=== PATIENT | female | born 1990 | race Caucasian/White ===

== ENCOUNTER 2018-09-13 08:21 | Emergency (ER) | payer MEDICAID ==
[~2018-09-13] VITALS: Ht 172.7 cm; Wt 68.0 kg
[2018-09-13] MEDS ORDERED: ONDANSETRON HCL 4 MG/2 ML VIAL IV ONE (09:00)
[2018-09-13] MEDS ORDERED: SODIUM CHLORIDE 0.9% 1,000 ML IV ONE ×2 (09:00)
[2018-09-13] MEDS ORDERED: MORPHINE SULFATE 4 MG/ML SYR/VIAL IV ONE (09:00)
[2018-09-13] MEDS ORDERED: ONDANSETRON HCL 4 MG/2 ML VIAL ONE (09:04)
[2018-09-13] MEDS ORDERED: MORPHINE SULFATE 4 MG/ML SYR/VIAL ONE (09:04)
[2018-09-13 09:06] LABS: Urine Bacteria NONE SEEN /hpf (None Seen); Urine Blood Negative /uL (Negative); Urine Specific Gravity 1.013 (1.001-1.035); Urine WBC 1 /hpf (0 - 5)
[2018-09-13 09:26] LABS: Basophils # (auto) 0 uL; Basophils % (auto) 0.4 % (0.0-2.0); Eosinophils # (auto) 0 uL; Eosinophils % (auto) 0.4 % (0.0-7.0); Hematocrit 44.8 % (36.0-46.0); Hemoglobin 14.9 g/dL (12.2-16.2); Lymphocytes # (auto) 1.3 uL; Lymphocytes % (auto) 19.8 % (10.0-50.0); Mean Corpuscular Hemoglobin 31.3 pg (28.0-32.0); Mean Corpuscular Hgb Conc. 33.3 g/dL (32.0-36.0); Mean Corpuscular Volume 93.9 fL (80.0-100.0); Monocytes # (auto) 0.4 uL; Monocytes % (auto) 5.6 % (0.0-12.0); Neutrophils # (auto) 4.9 uL; Neutrophils % (auto) 73.8 % (37.0-80.0); Nucleated Red Blood Cells % 0.1 %; Platelet Count (auto) 165 10^3/uL (140-450); Red Blood Cells 4.77 10^6/uL (4.0-5.20); Red Cell Distribution Width 13.5 % (11.8-14.3); White Blood Cell 6.7 10^3/uL (4.4-10.8)
[2018-09-13 09:38] LABS: INR 0.96 (0.9-1.15); Partial Thromboplastin Time 23.6 sec (23.78-33.04); Prothrombin Time 10.3 sec (9.27-12.13)
[2018-09-13 09:43] LABS: Albumin 4.5 g/dL (3.4-5.0); BUN/Creatinine Ratio 18.5; Calcium 9.2 mg/dL (8.5-10.1); Potassium 4.5 mmol/L (3.5-5.1)
[2018-09-13 09:46] LABS: Bilirubin, Total 0.3 mg/dL (0.2-1.0); Total Protein 7.5 g/dL (6.4-8.2)
[2018-09-13 10:26] LABS: Amylase 124 U/L (25-115); Lipase 285 U/L (73-393)
[2018-09-13 11:48] VITALS: BP 127/80
== END 2018-09-13 12:13 | disposition home or self-care (01) ==
LOC: ER 08:21
DX: R10.30 Lower abdominal pain, unspecified (principal); R11.2 Nausea with vomiting, unspecified; R19.7 Diarrhea, unspecified; R07.9 Chest pain, unspecified; Z90.49 Acquired absence of other specified parts of digestive tract; Z90.710 Acquired absence of both cervix and uterus
CPT/HCPCS: 36415; 71045; 74176; 80053; 81001; 82150; 83690; 85025; 85610; 85730; 96361; 96374; 96375; 99284; J2270; J2405; J7030

== ENCOUNTER 2018-09-13 23:42 | Emergency (ER) | payer MEDICAID ==
[~2018-09-13] VITALS: Ht 172.7 cm; Wt 68.0 kg
[2018-09-14] MEDS ORDERED: LORazepam 2MG/ML-1ML VIAL IV ONE (00:15)
[2018-09-14 00:40] LABS: Basophils # (auto) 0.2 uL; Basophils % (auto) 2.8 % (0.0-2.0); Eosinophils # (auto) 0 uL; Eosinophils % (auto) 0.2 % (0.0-7.0); Hematocrit 45.1 % (36.0-46.0); Hemoglobin 15.4 g/dL (12.2-16.2); Lymphocytes # (auto) 1.2 uL; Lymphocytes % (auto) 15.5 % (10.0-50.0); Mean Corpuscular Hemoglobin 31.4 pg (28.0-32.0); Mean Corpuscular Hgb Conc. 34.1 g/dL (32.0-36.0); Mean Corpuscular Volume 91.9 fL (80.0-100.0); Monocytes # (auto) 0.3 uL; Monocytes % (auto) 4.2 % (0.0-12.0); Neutrophils # (auto) 5.7 uL; Neutrophils % (auto) 77.3 % (37.0-80.0); Nucleated Red Blood Cells % 0.1 %; Platelet Count (auto) 206 10^3/uL (140-450); Red Blood Cells 4.91 10^6/uL (4.0-5.20); Red Cell Distribution Width 13.5 % (11.8-14.3); White Blood Cell 7.4 10^3/uL (4.4-10.8)
[2018-09-14 00:59] LABS: Albumin 5.1 g/dL (3.4-5.0); Calcium 9.8 mg/dL (8.5-10.1); Potassium 3.5 mmol/L (3.5-5.1)
[2018-09-14 01:01] LABS: Bilirubin, Total 0.5 mg/dL (0.2-1.0)
[2018-09-14 01:09] LABS: Salicylate < 1.7 mg/dL (2.8-20.0)
[2018-09-14 01:20] LABS: Acetaminophen < 2.0 ug/mL (10-30)
[2018-09-14] MEDS ORDERED: NALBUPHINE HCL 10 MG/1ml INJECTION IV ONE (02:30)
[2018-09-14] MEDS ORDERED: ONDANSETRON HCL 4 MG/2 ML VIAL IV ONE (02:30)
[2018-09-14] MEDS ORDERED: SODIUM CHLORIDE 0.9% 1,000 ML IV ONE (02:30)
[2018-09-14 02:37] VITALS: BP 112/59
[2018-09-14 02:56] LABS: Alcohol, Urine < 3.0 mg/dL (0-5); Amphetamine Screen, Urine NEGATIVE (NEGATIVE); Barbiturate Scree,Urine NEGATIVE (NEGATIVE); Benzodiazephine Screen, Urine NEGATIVE (NEGATIVE); Cannabinoid Screen, Urine POSITIVE (NEGATIVE); Cocaine Screen, Urine NEGATIVE (NEGATIVE); Opiate Scree,Urine NEGATIVE (NEGATIVE); Phencyclidine Screen, Urine NEGATIVE (NEGATIVE)
[2018-09-14 03:14] LABS: Urine Bacteria NONE SEEN /hpf (None Seen); Urine Blood Negative /uL (Negative); Urine Specific Gravity 1.007 (1.001-1.035); Urine WBC <1 /hpf (0 - 5)
== END 2018-09-14 05:05 | disposition home or self-care (01) ==
LOC: ER 23:48
DX: F45.8 Other somatoform disorders (principal); F41.9 Anxiety disorder, unspecified; F12.10 Cannabis abuse, uncomplicated; Z87.11 Personal history of peptic ulcer disease; Z90.710 Acquired absence of both cervix and uterus
CPT/HCPCS: 36415; 36600; 80053; 80307; 80329; 81001; 82805; 85025; 85652; 86141; 96374; 96375; 99283; J2060; J2300; J2405; J7030

== ENCOUNTER 2018-12-10 09:22 | Emergency (ER) | payer MEDICAID ==
[~2018-12-10] VITALS: Ht 165.1 cm; Wt 49.9 kg
[2018-12-10 10:06] LABS: Basophils # (auto) 0 uL; Basophils % (auto) 0.5 % (0.0-2.0); Eosinophils # (auto) 0 uL; Eosinophils % (auto) 0.1 % (0.0-7.0); Hematocrit 43.5 % (36.0-46.0); Hemoglobin 14.7 g/dL (12.2-16.2); Lymphocytes # (auto) 0.8 uL; Lymphocytes % (auto) 13.8 % (10.0-50.0); Mean Corpuscular Hemoglobin 31.8 pg (28.0-32.0); Mean Corpuscular Hgb Conc. 33.8 g/dL (32.0-36.0); Mean Corpuscular Volume 94.1 fL (80.0-100.0); Monocytes # (auto) 0.3 uL; Monocytes % (auto) 4.7 % (0.0-12.0); Neutrophils # (auto) 4.8 uL; Neutrophils % (auto) 80.9 % (37.0-80.0); Platelet Count (auto) 168 10^3/uL (140-450); Red Blood Cells 4.63 10^6/uL (4.0-5.20); Red Cell Distribution Width 13.8 % (11.8-14.3); White Blood Cell 5.9 10^3/uL (4.4-10.8)
[2018-12-10] MEDS ORDERED: diphenhdrAMINE HCL 50 MG/1 ML VL IV ONE (10:15)
[2018-12-10] MEDS ORDERED: LORazepam 2MG/ML-1ML VIAL IV ONE (10:15)
[2018-12-10 10:26] LABS: Calcium 10.1 mg/dL (8.5-10.1); Magnesium 2.7 mg/dL (1.6-2.6); Potassium 3.3 mmol/L (3.5-5.1)
[2018-12-10 10:33] LABS: BUN/Creatinine Ratio 13.2
[2018-12-10] MEDS ORDERED: SODIUM CHLORIDE 0.9% 1,000 ML IV ONE (10:34)
[2018-12-10 11:25] LABS: Urine Amorphous Crystal MOD /hpf (None Seen); Urine Bacteria NONE SEEN /hpf (None Seen); Urine Blood Negative /uL (Negative); Urine Specific Gravity 1.013 (1.001-1.035); Urine WBC 3 /hpf (0 - 5)
[2018-12-10 12:35] VITALS: BP 109/73
== END 2018-12-10 15:20 | disposition home or self-care (01) ==
LOC: EDBD 09:22 → ER 09:23
DX: K52.9 Noninfective gastroenteritis and colitis, unspecified (principal); F41.9 Anxiety disorder, unspecified; F12.10 Cannabis abuse, uncomplicated; Z90.710 Acquired absence of both cervix and uterus; Z90.89 Acquired absence of other organs
CPT/HCPCS: 36415; 74176; 80053; 81001; 83735; 85025; 94761; 96361; 96374; 96375; 99284; J1200; J2060; J7030

== ENCOUNTER 2019-03-20 13:33 | Inpatient (IN) | payer MEDICAID ==
[~2019-03-20] VITALS: Ht 172.7 cm; Wt 62.8 kg
[2019-03-20] MEDS ORDERED: SODIUM CHLORIDE 0.9% 1,000 ML IV ONE (15:00)
[2019-03-20] MEDS ORDERED: LORazepam 2MG/ML-1ML VIAL IV ONE ×2 (15:00→18:15)
[2019-03-20 17:45] LABS: Basophils # (auto) 0 uL; Basophils % (auto) 0.5 % (0.0-2.0); Eosinophils # (auto) 0 uL; Eosinophils % (auto) 0.1 % (0.0-7.0); Hemoglobin 14.8 g/dL (12.2-16.2); Lymphocytes # (auto) 1.1 uL; Lymphocytes % (auto) 16.8 % (10.0-50.0); Mean Corpuscular Hemoglobin 32.2 pg (28.0-32.0); Mean Corpuscular Hgb Conc. 34.3 g/dL (32.0-36.0); Monocytes # (auto) 0.3 uL; Monocytes % (auto) 4.7 % (0.0-12.0); Neutrophils # (auto) 5.1 uL; Neutrophils % (auto) 77.9 % (37.0-80.0); Platelet Count (auto) 202 10^3/uL (140-450); Red Blood Cells 4.58 10^6/uL (4.0-5.20); Red Cell Distribution Width 13.5 % (11.8-14.3); White Blood Cell 6.6 10^3/uL (4.4-10.8)
[2019-03-20 17:57] LABS: Albumin 4.8 g/dL (3.4-5.0); BUN/Creatinine Ratio 16.2; Calcium 9.4 mg/dL (8.5-10.1); Potassium 3.1 mmol/L (3.5-5.1)
[2019-03-20 17:59] LABS: Bilirubin, Total 0.8 mg/dL (0.2-1.0); Total Protein 8.1 g/dL (6.4-8.2)
[2019-03-20] MEDS ORDERED: LORazepam 2MG/ML-1ML VIAL ONE (18:16)
[2019-03-20] MEDS ORDERED: POTASSIUM CHL 20 Meq TABLET PO ONE (19:30)
[2019-03-20] MEDS ORDERED: PROMETHAZINE HCL 25 MG/ML 1ML IV ONE (19:30)
[2019-03-20 20:51] LABS: Urine Bacteria FEW /hpf (None Seen); Urine Blood Negative /uL (Negative); Urine Mucus FEW (None Seen); Urine Specific Gravity 1.028 (1.001-1.035); Urine WBC 3 /hpf (0 - 5)
[2019-03-20 20:57] LABS: Amphetamine Screen, Urine NEGATIVE (NEGATIVE); Barbiturate Scree,Urine NEGATIVE (NEGATIVE); Benzodiazephine Screen, Urine NEGATIVE (NEGATIVE); Cannabinoid Screen, Urine POSITIVE (NEGATIVE); Cocaine Screen, Urine NEGATIVE (NEGATIVE); Opiate Scree,Urine NEGATIVE (NEGATIVE); Phencyclidine Screen, Urine NEGATIVE (NEGATIVE)
[2019-03-20] MEDS ORDERED: ONDANSETRON HCL 4 MG/2 ML VIAL IV PRN (22:45)
[2019-03-20] MEDS ORDERED: ACETAMINOPHEN 325 MG TAB PO PRN (22:45)
--- NOTE | 2019-03-20 23:15 | NUR ---
MS admit from ER KRISTA STERLING admitted to MS after SBAR received. Patient oriented to CANDACE NICHOLSON, primary RN, unit, room, bed, and unit policies regarding patient care and visiting hours. Patient weighed by bedscale and encouraged to call if they need something. All questions and concerns addressed, patient verbalized understanding.
[2019-03-20 23:33] VITALS: BP 102/56
[2019-03-21 05:26] VITALS: BP 97/66
[2019-03-21 05:45] LABS: BUN/Creatinine Ratio 26.3; Calcium 8.6 mg/dL (8.5-10.1); Potassium 4.3 mmol/L (3.5-5.1)
--- NOTE | 2019-03-21 06:35 | NUR ---
PATIENT RESTING IN BED COMFORTABLY, SO S/S OF PAIN OR DISTRESS. EVEN AND UNLABORED RESPIRATIONS NOTED. CALL LIGHT WITHIN REACH. SIDE RAILS UP X2. SEIZURE PRECAUTIONS IN PLACE.
--- NOTE | 2019-03-21 08:00 | NUR ---
Patient in bed awake, oriented x4, no acute distress noted. Patient denies she wants to hurt herself. Patient verbalized "I just need help."
[2019-03-21 09:00] VITALS: BP 130/59
--- NOTE | 2019-03-21 09:30 | NUR ---
Tele psych consult placed via [employer].
--- NOTE | 2019-03-21 09:35 | NUR ---
Kyra from Tele Psych Consult called. Tele psych monitor already set up in the patient's room.
--- NOTE | 2019-03-21 10:25 | NUR ---
Psychiatrist called that she could not access the patient's medical record, she will call IT.
--- NOTE | 2019-03-21 10:45 | NUR ---
Kyra from Tele Psych Consult that the psychiatrist could not access patient's medical records, they need copy of H&P, ER Physician's notes, and order for the Psychiatric Consult to be sent via ; Contact# [phone] (1). Charge Nurse Caitlyn made aware.
--- NOTE | 2019-03-21 10:57 | NUR ---
Copy of H&P, ER Physician's notes, order for Psych Consult sent via Fax.
[2019-03-21] MEDS: FAMOTIDINE 20 MG TAB PO SCH ×2 (11:17→21:51)
[2019-03-21] MEDS: SERTRALINE HCL 50 MG TAB PO SCH (11:17)
--- NOTE | 2019-03-21 11:35 | NUR ---
Paged the Engineering to fix the call light. No light on when the red button is pressed to call the Nurse.
--- NOTE | 2019-03-21 12:17 | NUR ---
Called [facility] (P# [phone]). Spoke with Lynette. Lynette said they received the copy of H&P, ER Physician's Notes and order for psych Consult via Fax, she will follow up with the psychiatrist. Tele psych monitor at bedside.
[2019-03-21 13:00] VITALS: BP 130/70
--- NOTE | 2019-03-21 13:06 | NUR ---
Dr. Almazan (P# [phone]) called back. said she did the Tele Psych Consult with the patient, she will send her recommendation via Fax, she asked if she can talk to the attending physician. Dr. Marroquin made aware. Dr. Marroquin said he has yet to see the patient, if he can call back the psychiatrist. Dr. Almazan made aware.
--- NOTE | 2019-03-21 16:09 | NUR ---
Called [facility] (P# [phone]). Spoke with Tommie that the Tele Psych Consult report/recommendation from Dr. Almazan is not received yet. Tommie to resend the report to . Waiting for the copy of recommendation via Fax.
--- NOTE | 2019-03-21 16:15 | NUR ---
Tele Psych report/recommendation received via Fax. Report placed in the patient's chart.
--- NOTE | 2019-03-21 16:17 | NUR ---
Informed Dr. Marroquin of the Tele Psych Consult report/recommendation.
[2019-03-21 17:00] VITALS: BP 144/79
--- NOTE | 2019-03-21 19:20 | NUR ---
Opening Shift Note Resumed care of patient post report from Nathalie RN. Patient awake and alert, resting in bed comfortably. No S/S of distress/SOB or pain. Patient verbalizes feeling mild anxiety at the moment due to "no knowing what the plan is if I get another seizure." Instructed on POC and to call for assist PRN, patient verbalizes understanding. Will continue to monitor for changes Q1hr and PRN. Patients and children at bed side. .
--- NOTE | 2019-03-21 20:32 | NUR ---
DR GUY AT BED SIDE
--- NOTE | 2019-03-21 20:55 | NUR ---
DR GUY DISCUSSED POC WITH PATIENT AND FAMILY, ALL QUESTIONS ANSWERED AT THIS TIME.
[2019-03-21] MEDS: TEMAZEPAM 15 MG CAP PO PRN (21:51)
[2019-03-21 22:00] VITALS: BP 127/76
--- NOTE | 2019-03-22 02:00 | NUR ---
PATIENT RESTING IN BED COMFORTABLY. NO S/S OF PAIN OR DISTRESS. CALL LIGHT WITHIN REACH.
--- NOTE | 2019-03-22 03:56 | NUR ---
PATIENT CRYING DURING VITAL CHECKS. PATIENT AWAKEN FROM SLEEP TO DO VITAL CHECKS, PER HEALTH CARE ATTORNEY PATIENT BEGUN CRYING STATING "I WOKE UP SCARED, I FEEL MY ANXIETY" PATIENT ASSESSED. PATIENT CONTINUES TO CRY, SAYING "IM SORRY, I HATE FEELING LIKE THIS" PATIENT COMFORTED AND RELAXATION TECHNIQUES ENCOURAGED. PATIENT VERBALIZES NO RELIEF FROM ANXIETY. WILL MEDICATE PER ORDER.
--- NOTE | 2019-03-22 04:01 | NUR ---
XANAX 0.25MG ADMINISTERED PER ORDER. WILL MONITOR CLOSELY AND REASSESS ANXIETY.
[2019-03-22] MEDS: ALPRAZolam 0.25 MG TAB PO PRN (04:09)
[2019-03-22 05:01] VITALS: BP 117/72
--- NOTE | 2019-03-22 08:15 | NUR ---
Patient sitting on the chair, resting her head on the side of the bed, crying, stated it's "very hot." Informed the patient I will get ice bag for her.
--- NOTE | 2019-03-22 08:20 | NUR ---
Patient found on the floor, with pillow under the head, eyes open, staring at the ceiling, verbalized "I'm sorry." BP = 132/95, Pulse rate = 95, RR = 19, O2 Sat = 99% on room air.
--- NOTE | 2019-03-22 08:30 | NUR ---
Assisted the patient back to bed.
[2019-03-22] MEDS: LORazepam 2MG/ML-1ML VIAL IV PRN ×3 (08:31→18:42)
--- NOTE | 2019-03-22 08:31 | NUR ---
BP = 151/74, Pulse = 101, RR = 18, O2 Sat = 100% on room air.
--- NOTE | 2019-03-22 08:31 | NUR ---
Ativan Inj given for seizures as ordered.
[2019-03-22 09:00] VITALS: BP 137/60
--- NOTE | 2019-03-22 10:18 | NUR ---
BP = 119/83, Heart rate = 109, RR = 18, O2 Sat = 99% on Room air.
--- NOTE | 2019-03-22 10:18 | NUR ---
Ativan Inj 1 mg given for seizures.
--- NOTE | 2019-03-22 10:19 | NUR ---
Dr. Marroquin at bedside.
--- NOTE | 2019-03-22 10:50 | NUR ---
Called Charge Nurse that patient needs a sitter.
--- NOTE | 2019-03-22 11:00 | NUR ---
Patient asleep at this time. Grandfather Bernardo ([phone]) at bedside.
--- NOTE | 2019-03-22 11:46 | NUR ---
Patient is awake, depressed. Asked the patient if she's ready to take her Famotidine and Zoloft pills as ordered. Patient said okay.
[2019-03-22] MEDS: FAMOTIDINE 20 MG TAB PO SCH ×2 (11:47→21:31)
[2019-03-22] MEDS: SERTRALINE HCL 50 MG TAB PO SCH (11:47)
--- NOTE | 2019-03-22 12:15 | NUR ---
Lizzeth/INOCENTE Julien at bedside. Patient's grand father at bedside.
[2019-03-22 13:00] VITALS: BP 100/61
--- NOTE | 2019-03-22 13:38 | NUR ---
Dr. Sigala came over for follow up Neurology Consult. supervisor sound technician at bedside. Patient's mother Amy insisted that patient needs IV fluids. Dr. Sigala explained that patient needs to be encouraged to drink fluids and eat, ordered BMP. Patient on Regular Diet. MD speaking with patient's mother Amy and grandfather Amy.
[2019-03-22 15:13] LABS: Anion Gap 7 (5-15); BUN/Creatinine Ratio 17.6; Blood Urea Nitrogen 15 mg/dL (7-18); Calcium 9.3 mg/dL (8.5-10.1); Carbon Dioxide 23 mmol/L (21-32); Chloride 108 mmol/L (98-107); GFR African American 101 mL/min; GFR Non-African American 83 mL/min; Glucose 87 mg/dL (74-106); Potassium 3.8 mmol/L (3.5-5.1); Sodium 138 mmol/L (136-145)
--- NOTE | 2019-03-22 17:30 | NUR ---
Patient transferred via bed from Room 274A to Room 285A. Sitter at bedside.
--- NOTE | 2019-03-22 18:10 | NUR ---
Patient is talking, oriented x4, no acute distress noted. Family at bedside. Family member said patient's both hands and feet are always cold even at home.
--- NOTE | 2019-03-22 18:40 | NUR ---
Patient's Heart Rate on Telemtry went up to 150's to 160s. Patient having seizures. at bedside. Sitter at bedside.
--- NOTE | 2019-03-22 18:42 | NUR ---
Ativan Inj 1mg given for seizures as ordered. Heart rate = 131 went down to 120 to 115 bpm.
--- NOTE | 2019-03-22 19:50 | NUR ---
OPENING SHIFT NOTE: PATIENT IS RESTING IN BED. FRIEND IS BEDSIDE. SHE CURRENTLY HAS NO COMPLAINTS OF DISTRESS OR PAIN. RIGHT HAND IV WAS REPORTED PAINFUL AND WOULD NOT FLUSH SO THE SITE WAS DISCONTINUED. I UPDATED HER ON HER PLAN OF CARE AND SHE IS IN COMPLIANCE WITH IT. SITTER IS BEDSIDE. BED IS LOCKED IN LOWEST POSITION WITH SIDE RAILS UP X2. CALL LIGHT IS WITHIN REACH. WILL CONTINUE MONITOR.
--- NOTE | 2019-03-22 19:55 | NUR ---
PATIENT MOTHER CALLED FOR UPDATE REGARDING PATIENT CONDITION.
[2019-03-22] MEDS: TEMAZEPAM 15 MG CAP PO PRN (21:31)
[2019-03-22 21:36] VITALS: BP 124/67
[2019-03-23] MEDS: ALPRAZolam 0.25 MG TAB PO PRN (03:45)
[2019-03-23 05:41] VITALS: BP 105/74
--- NOTE | 2019-03-23 08:00 | NUR ---
Opening Shift Note Assumed care of patient, asleep but easily aroused. No S/S of distress/SOB or pain. Instructed on POC and to call for assist PRN, will continue to monitor for changes Q1hr and PRN. Sitter at bedside. Bed locked in lowest position and side rails padded for safety.
[2019-03-23 08:26] VITALS: BP 119/64
[2019-03-23] MEDS: LORazepam 2MG/ML-1ML VIAL IV PRN ×4 (09:41→21:59)
[2019-03-23] MEDS: FAMOTIDINE 20 MG TAB PO SCH (10:13)
[2019-03-23] MEDS: SERTRALINE HCL 50 MG TAB PO SCH (10:14)
--- NOTE | 2019-03-23 10:50 | NUR ---
Seizure activity Received call from dany at 10:37 stating that patient is having a seizure. V/S T. 98.6, P. 78, R. 22, B/P. 112/85, O2. 99% Ativan 1mg IV administered as ordered. Maineter stated that patient was unresponsive and shaking uncontrollably. Patient is now alert and oriented. Will continue to monitor patient.
--- NOTE | 2019-03-23 11:20 | NUR ---
Hospitalist Alexis Marroquin at bedside.
--- NOTE | 2019-03-23 11:31 | NUR ---
o/c note: Lopez Lerma called and stated pt needs to transfer to [facility]. He stated he talked to Bibi yesterday about transfer., no f/u with me. I am having primary Rn fax transfer packet to [facility] at fax # [phone]
[2019-03-23 13:00] VITALS: BP 103/84
--- NOTE | 2019-03-23 15:10 | NUR ---
Transfer packet re:faxed to [facility]. [phone]
--- NOTE | 2019-03-23 15:35 | NUR ---
Call from [facility] Received call from [facility] regarding patient. They received fax and was checking to confirm who the hospitalist and neurologist is for the patient and to see if the patient is on any IV fluids or supplemental oxygen.
--- NOTE | 2019-03-23 16:16 | NUR ---
Seizure Activity Received phone call from dany stating that patient is having seizure activity. Patient shaking uncontrollably and is unresponsive. Lasted for about 2 minutes. As per family member, the patient was sitting up conversing with them then she said everyone out and beckoned for persons to leave room. Her eyes then went into a fixed stare, she became unresponsive and started to shake. Family member noted that she was complaining of feeling very hot prior to this happening. Her hands were sweating and extremely cold to touch.
--- NOTE | 2019-03-23 16:56 | NUR ---
o/c note If pt gets transferred [facility] auth for [facility] is [id number]
[2019-03-23 17:00] VITALS: BP 120/73
--- NOTE | 2019-03-23 20:25 | NUR ---
ear mold laboratory technician called to inform that patient heart rate ashanti to 130. Went to check on patient and patient states that she had just come from the restroom ambulating. Patient heart rate currently between 75-80bpm.
--- NOTE | 2019-03-23 21:52 | NUR ---
Patient begin having a seizure. Observed and began protocol. Patient turned on right side with oxygen at 2lpm NC. 1st dose of 1 mg/0.5ml of Ativan then given at 215. Patient seizure subsided. Second seizure then began and 2nd dose of 1mg Ativan given at 215. Vitals elevated with BP 157/115, HR 181. Code assist called at 215. BS checked at 87. New orders obtained from harrison Martinist. BP reassessed at 98/71, HR 189. Keppra given 1000mg IV x1. All orders obtained and carried out.
[2019-03-23 22:00] VITALS: BP 123/66
[2019-03-23] MEDS ORDERED: LEVETIRACETAM 500 MG/5ML INJ IV ONE ×2 (22:08→22:24)
[2019-03-23] MEDS ORDERED: LEVETIRACETAM INJ 1,000 MG in D5W 5% 100 ML IV ONE (22:15)
[2019-03-24] MEDS: FAMOTIDINE 20 MG TAB PO SCH ×3 (00:02→21:51)
[2019-03-24 05:00] VITALS: BP 158/67
--- NOTE | 2019-03-24 08:00 | NUR ---
OPENING NOTE ASSUMED CARE OF PT. ALERT AND ORIENTED. NO S/S SOB/DISTRESS NOTED. SAFETY PRECAUTIONS IN PLACE. BED SET TO LOWEST POSITION/LOCKED, BEDSIDE RAILS UP X2, CALL LIGHT WARTHIN REACH. INSTRUCTED PATIENT TO CALL FOR ASSISTANCE. SITTER AT BEDSIDE. UPDATED ON POC. PT VERBALIZED UNDERSTANDING. WILL CONTINUE TO MONITOR Q1HR AND PRN.
--- NOTE | 2019-03-24 08:19 | NUR ---
o/c note will call [facility] at 100hrs since transfer center will be done with their bed report and transfer center will know what their bed situation is.
--- NOTE | 2019-03-24 08:20 | NUR ---
Seizure activity Received call from dany at 08:20 stating that patient is having a seizure. V/S P. 116, R. 18, B/P. 127/66, O2. 100% Ativan 1mg IV administered per MD ordered. Dany stated that patient was unresponsive and shaking uncontrollably. Patient is now alert and oriented. Will continue to monitor patient.
[2019-03-24] MEDS: LORazepam 2MG/ML-1ML VIAL IV PRN ×5 (08:26→21:10)
[2019-03-24 08:30] VITALS: BP 127/66
--- NOTE | 2019-03-24 09:00 | NUR ---
ENDORSED CARE TO RADHA BATES.
--- NOTE | 2019-03-24 09:30 | NUR ---
OPENING NOTE ASSUMED CARE OF PATIENT. ALERT AND ORIENTED. NO S/S SOB/DISTRESS NOTED. SAFETY PRECAUTIONS IN PLACE. BED SET TO LOWEST POSITION/LOCKED, BEDSIDE RAILS UP X2, CALL LIGHT WITHIN REACH. INSTRUCTED PATIENT TO CALL FOR ASSISTANCE. SITTER AT BEDSIDE. UPDATED ON POC. PT VERBALIZED UNDERSTANDING. WILL CONTINUE TO MONITOR Q1HR AND PRN.
--- NOTE | 2019-03-24 09:55 | NUR ---
PATIENT C/O CHEST PAIN EKG PERFORMED PER PROTOCOL, EKG READ BY DOCTOR PETERSON, EKG PLACED IN CHART. NO NEW ORDERS RECEIVED.
[2019-03-24] MEDS ORDERED: LEVETIRACETAM 500 MG TAB PO SCH (10:00)
--- NOTE | 2019-03-24 10:04 | NUR ---
o/c note: spoke to David at [facility] center and she stated they are going to have MD to MD with
[2019-03-24] MEDS: SERTRALINE HCL 50 MG TAB PO SCH ×2 (10:10→17:29)
[2019-03-24 12:10] VITALS: BP 131/74
--- NOTE | 2019-03-24 12:11 | NUR ---
1154 Patient had seizure activity movement was placed on side, Ativan given IVP at 1203, post V/S 131/74 118 HR 20 RR 100%O2 sat on 2LNC. Doctor Lopez paged at 1210 awaiting call back.
--- NOTE | 2019-03-24 12:22 | NUR ---
Nutrition Assessment Notes please see attached link for complete assessment Est. Needs BW (63 kg): [phone] kcal (25-30 kcal/kgBW), 63-75 gms pro (1.0-1.2gms/kgBW). Will continue to monitor pertinent labs and reassess nutrient need prn Addendum: 03/24/19 at [address] Amended: Links added.
--- NOTE | 2019-03-24 12:26 | NUR ---
DOCTOR BROOKS PAGED,AWAITING CALL BACK.
--- NOTE | 2019-03-24 12:54 | NUR ---
Paged Doctor Jovon, awaiting call back.
--- NOTE | 2019-03-24 13:03 | NUR ---
Spoke with Doctor Lopez MD aware of seizure activity, no new orders received.
--- NOTE | 2019-03-24 13:32 | NUR ---
Spoke with Jovon informed him of seizure activity, No new orders received will continue to monitor.
--- NOTE | 2019-03-24 15:02 | NUR ---
o/c note: Verified with his cell # of [phone] and then called [facility]. I spoke to Carey at [facility] transfer center and verified and DR. Marroquin's cell #. They have the correct numbers and they are waiting for their neurologist to get back to them
[2019-03-24 16:30] VITALS: BP 110/81
--- NOTE | 2019-03-24 18:05 | NUR ---
Seizure activity 1741 Patient had seizure activity movement, Seizure protocol started. Patient was placed on side with 2LNC. Doctor Lopez aware. 1755 Patient had seizure activity movement x2 Per CAN TECHNICIAN. Ativan given IVP (SEE EMAR), post V/S 131/74 118 HR 20 RR 100%O2 sat on 2LNC. Doctor Lopez aware. Now patient is awake and alert, will continue to monitor.
--- NOTE | 2019-03-24 19:15 | NUR ---
CARE ENDORSED TO NOC RN.
--- NOTE | 2019-03-24 21:08 | NUR ---
pt had seizure at this time lasting one minute, after pt finished having seizure she stated to me that she dont like me because i said that she is having pseudo seizures, and that she wants another nurse, i made this statement to two nurses because they were in a panic mode and to calm them down, charge nurse made aware of pts request
--- NOTE | 2019-03-24 21:15 | NUR ---
post seizure v/s 125/70, 97.5 ax, 78hr, 16, 100% on o2 2l,
--- NOTE | 2019-03-24 21:28 | NUR ---
pts mother called verbalized password all questions and concerns addressed, mother updated on plans to transfer [facility], mother upset as to why it is taking so long to transfer pt.
--- NOTE | 2019-03-24 21:39 | NUR ---
report given to gretta curran poc reviewed
--- NOTE | 2019-03-24 21:39 | NUR ---
Assumed care of patient: Assumed care of patient, awake and alert. No S/S of distress/SOB or pain. Instructed on POC and to call for assist PRN, will continue to monitor for changes Q1hr and PRN.
[2019-03-24] MEDS: ALPRAZolam 0.25 MG TAB PO PRN (21:52)
[2019-03-24 22:00] VITALS: BP 125/70
--- NOTE | 2019-03-24 22:30 | NUR ---
hospitalist notified of pts recent seizure activity, updated on pts poc
[2019-03-25 05:00] VITALS: BP 112/65
[2019-03-25] MEDS: LORazepam 2MG/ML-1ML VIAL IV PRN ×5 (07:06→17:19)
--- NOTE | 2019-03-25 07:06 | NUR ---
Patient had a seizure, seizure precautions implemented and PRN medications administered. Patient noted to response after seizure episode and able to communicate and make her needs known. RN to continue to assess and monitor patient.
--- NOTE | 2019-03-25 08:00 | NUR ---
Opening Shift Note Assumed care of patient, resting with her eyes closed at this time. retail shift supervisor nurse reported patient just had a seizure and was given PRN Ativan. No S/S of SOB or pain. Instructed on POC and to call for assist PRN, will continue to monitor patient frequently.
[2019-03-25] MEDS: ALPRAZolam 0.25 MG TAB PO PRN ×2 (09:23→22:01)
[2019-03-25] MEDS: SERTRALINE HCL 50 MG TAB PO SCH (09:23)
[2019-03-25] MEDS: FAMOTIDINE 20 MG TAB PO SCH ×2 (09:23→21:59)
[2019-03-25 09:47] VITALS: BP 106/58
--- NOTE | 2019-03-25 09:55 | NUR ---
Seizure Patient had a seizure. Sitter is recording how long seizures last. Patient was given PRN Ativan as ordered for seizure activity. She was also given Xanax this morning with her AM medications to help control her anxiety and possibly prevent or decrease seizure activity as patient has said her anxiety triggers her seizure activity. Vital signs: HR 120, Resp 36, BP 106/58.
--- NOTE | 2019-03-25 10:20 | NUR ---
Transfer: Spoke to Naun at [facility] transfer center. Informed him I have been trying to get pt there for the last 3 days and the same response from them that they are trying to get neurologist to call them back. Naun stated he would work on getting neuro md to talk with our md
--- NOTE | 2019-03-25 12:12 | NUR ---
Seizure Patient had another seizure. Family at bedside. Ativan given as ordered. Vital signs.
[2019-03-25 12:20] VITALS: BP 137/76
--- NOTE | 2019-03-25 12:56 | NUR ---
Transfer: Naun from [facility] called me and stated we have an accepting MD at [facility]. Accepting MD is . [facility] is not looking for bed. I will contact Dr. Sigala and let him know we have accepting at [facility] Addendum: 03/25/19 at 1259 by Desiree Greer RN CM correction: [facility] is looking for a bed
--- NOTE | 2019-03-25 13:58 | NUR ---
IV fluid? Not eating well. Patient is requesting IV fluids; patient's mother also called asking about IV nutrition as the patient is on a regular diet and is not eating well. was in room speaking with B bed when the patient made this request. This nurse informed the MD of the patient's request. No new orders at this time. MD has not seen the patient yet at this time.
[2019-03-25] MEDS ORDERED: SODIUM CHLORIDE 0.9% 250 ML IV ONE (14:15)
--- NOTE | 2019-03-25 14:15 | NUR ---
Transfer back agreement fax to [facility]
--- NOTE | 2019-03-25 15:19 | NUR ---
Transfer Auths per Theresa at [facility] auth for [facility] is [id number] and auth for [facility] is [id number]. [facility] called to both agencies
--- NOTE | 2019-03-25 15:20 | NUR ---
Seizure activity Lizzeth notified this nurse of a couple of seizures that happened today that did not last very long (3 seconds and 12 seconds). Patient currently sitting up in bed. Alert and oriented. Family at bedside. Notified family that they have an accepting doctor at [facility] but we are now waiting for a bed. Will notify patient and family when a bed becomes available.
[2019-03-25 16:45] VITALS: BP 114/67
--- NOTE | 2019-03-25 17:04 | NUR ---
Fluids/Family at bedside Spoke with Dr. Marroquin earlier regarding family/patient request for fluids through her IV since she is not eating and drinking well. MD ordered a bolus of 250 mL to be given over one hour. This was completed. Mother is at bedside and is upset that the patient has been here "so long" and that she is not getting fluids when she is not eating and drinking. It was explained that the patient received a bolus of 250 mL but they were not happy with this as the mother stated the patient is getting worse sitting here in this hospital. It was explained that a doctor has accepted her at [facility] but they are now waiting for a bed. Mother was very upset and stated we were going to let her lay here and . This nurse notified Dr. Marroquin and he gave orders for D5NS @ 75 mL/hour.
[2019-03-25] MEDS ORDERED: D5W/SOD CHLO 0.9% 1,000 ML IV SCH (17:15)
--- NOTE | 2019-03-25 18:16 | NUR ---
Seizure activity today The sitter notified this nurse of the seizure activity the patient had today. This nurse was not notified each time the patient had a seizure. At times her heart rate went up and that is how this nurse knew the patient was having a seizure. The patient sometimes gets hot prior to a seizure starting, sometimes her heart rate goes up in the 140-150's. After a seizure, the patient is tired and falls asleep. PRN Ativan given for seizure activity that this nurse was notified of. They are as follows: 0850 for 37 seconds 0910 for 45 seconds 0947 for 12 seconds 1203 for 3 seconds 1226 for 18 seconds 1428 for 15 seconds [address] Sigala came to see the patient this evening and answered the questions of the patient and family. He reassured the patient and informed the of the process of getting a bed at [facility]. The patient told Dr. Sigala that she was having chest pain. Dr. Sigala evaluated her and informed her that it was not heart related, but related to the muscle tension of the seizures.
--- NOTE | 2019-03-25 18:48 | NUR ---
Seizure - witnessed by Dr. Sigala Patient was reportedly having a seizure and Dr. Sigala was notified as he was on the floor at the time. He witnessed the seizure and examined the patient. He informed this nurse to hold the PRN Ativan at this time and said it was due to the fact that the patients eyes were looking around when he checked her and when he raised her arm, it did not drop down without resistance. patient's heart rate had gone up on the monitor, but when this nurse got to the room with the Ativan, the heart rate had decreased and patient was still and had eyes closed.
[2019-03-25 19:09] LABS: Anion Gap 9 (5-15); BUN/Creatinine Ratio 15.5; Blood Urea Nitrogen 16 mg/dL (7-18); Calcium 9.4 mg/dL (8.5-10.1); Carbon Dioxide 22 mmol/L (21-32); Chloride 109 mmol/L (98-107); GFR African American 81 mL/min; GFR Non-African American 67 mL/min; Glucose 72 mg/dL (74-106); Potassium 3.4 mmol/L (3.5-5.1); Sodium 140 mmol/L (136-145)
[2019-03-25] MEDS: TEMAZEPAM 15 MG CAP PO PRN (22:00)
--- NOTE | 2019-03-25 23:10 | NUR ---
Pt transferred to [facility] 2119- Received call from Mike at the [facility] transfer center to be notified of an open bed. Was told to call [phone] for report and to arrange for transport myself. 2211- Called [facility] to arrange transport. Given an ETA of one hour. 2219- Called and gave report to Duane at [facility]. 2308- Called the patients family and made them aware of the patient being transferred to [facility]. 2309- Pt picked up by [facility] and left the hospital via gurney. Pt had no S/S of distress and had no complaints at this time. Tele monitor returned to tele room and all wrist bands removed. All belongings given to transport team.
== END 2019-03-25 23:10 | disposition short-term general hospital (02) | DRG 53 ==
LOC: ER 13:33 → EDBD 13:33 → OVERFLOW 13:34 → WEST WING 23:22 → TELE-WESTW 03-24 06:25
PROVIDERS: ADMIT Nurse Practitioner; ATTEND Internal Medicine Pulmonary Disease
DX: G40.901 Epilepsy, unspecified, not intractable, with status epilepticus (principal); M32.9 Systemic lupus erythematosus, unspecified; F41.9 Anxiety disorder, unspecified; F32.9 Major depressive disorder, single episode, unspecified; E87.6 Hypokalemia; I73.00 Raynaud's syndrome without gangrene; M06.9 Rheumatoid arthritis, unspecified; G89.29 Other chronic pain; M19.90 Unspecified osteoarthritis, unspecified site; M54.5 Low back pain; F12.90 Cannabis use, unspecified, uncomplicated; M79.7 Fibromyalgia; Z79.899 Other long term (current) drug therapy; Z80.3 Family history of malignant neoplasm of breast; Z87.11 Personal history of peptic ulcer disease; Z90.13 Acquired absence of bilateral breasts and nipples; Z90.710 Acquired absence of both cervix and uterus; Z81.8 Family history of other mental and behavioral disorders; Z90.49 Acquired absence of other specified parts of digestive tract
CPT/HCPCS: 36415; 70450; 71045; 80048; 80053; 80307; 81001; 82962; 83690; 84702; 85025; 93005; 94761; 95819; G0378; J2405; J7060

== ENCOUNTER 2019-06-16 09:32 | Emergency (ER) | payer SELFPAY ==
[~2019-06-16] VITALS: Ht 172.7 cm; Wt 63.5 kg
[2019-06-16 09:47] VITALS: BP 100/63
== END 2019-06-16 13:13 | disposition left against medical advice (07) ==
LOC: ER 09:32
DX: R06.02 Shortness of breath (principal); R05 Cough; Z53.21 Procedure and treatment not carried out due to patient leaving prior to being seen by health care provider

== ENCOUNTER 2020-02-20 13:32 | Inpatient (IN) | payer MEDICAID ==
[~2020-02-20] VITALS: Ht 172.7 cm; Wt 65.3 kg
[~2020-02-20 13:32] MED LIST: BACL10TA; ESTR0.056; HYDR-531; PARO1TAB33; ROPI0.254; SUMA25TA2; [UNRECOGNIZED DRUG - CODE]
[2020-02-20] MEDS ORDERED: LORazepam 2MG/ML-1ML VIAL ONE (14:28)
[2020-02-20] MEDS ORDERED: LORazepam 2MG/ML-1ML VIAL IV ONE (14:30)
[2020-02-20 14:39] LABS: Urine Bacteria NONE SEEN /hpf (None Seen); Urine Blood Negative /uL (Negative); Urine Mucus FEW (None Seen); Urine Specific Gravity 1.023 (1.001-1.035); Urine WBC 1 /hpf (0 - 5)
[2020-02-20 14:48] LABS: Alcohol, Urine < 3.0 mg/dL (0-10); Amphetamine Screen, Urine NEGATIVE (NEGATIVE); Barbiturate Scree,Urine NEGATIVE (NEGATIVE); Benzodiazephine Screen, Urine NEGATIVE (NEGATIVE); Cannabinoid Screen, Urine POSITIVE (NEGATIVE); Cocaine Screen, Urine NEGATIVE (NEGATIVE); Opiate Scree,Urine NEGATIVE (NEGATIVE); Phencyclidine Screen, Urine NEGATIVE (NEGATIVE)
[2020-02-20 15:06] LABS: Basophils # (auto) 0 10 ^3/uL (0-0.2); Basophils % (auto) 0.4 % (0.0-2.0); Eosinophils # (auto) 0 10 ^3/uL (0-0.8); Eosinophils % (auto) 0.2 % (0.0-7.0); Hematocrit 42.4 % (36.0-46.0); Lymphocytes # (auto) 1.6 10 ^3/uL (0.4-5.4); Lymphocytes % (auto) 20.9 % (10.0-50.0); Mean Corpuscular Hemoglobin 32.1 pg (28.0-32.0); Mean Corpuscular Volume 97.3 fL (80.0-100.0); Monocytes # (auto) 0.4 10 ^3/uL (0-1.3); Monocytes % (auto) 5.8 % (0.0-12.0); Neutrophils # (auto) 5.5 10 ^3/uL (1.6-8.6); Neutrophils % (auto) 72.7 % (37.0-80.0); Platelet Count (auto) 168 10^3/uL (140-450); Red Blood Cells 4.35 10^6/uL (4.0-5.20); Red Cell Distribution Width 14.2 % (11.8-14.3); White Blood Cell 7.6 10^3/uL (4.4-10.8)
[2020-02-20 15:20] LABS: Albumin 4.5 g/dL (3.4-5.0); Calcium 9.5 mg/dL (8.5-10.1)
[2020-02-20 15:23] LABS: BUN/Creatinine Ratio 16.1; Bilirubin, Total 0.4 mg/dL (0.2-1.0); Total Protein 7.8 g/dL (6.4-8.2)
[2020-02-20 15:26] LABS: Potassium 2.7 mmol/L (3.5-5.1)
[2020-02-20] MEDS ORDERED: POTASSIUM CHL 20 Meq TABLET PO ONE (15:30)
[2020-02-20] MEDS ORDERED: POTASSIUM CHL 20MEQ/100ML 100 ML IV ONE ×2 (15:30→22:00)
[2020-02-20] MEDS ORDERED: LORazepam 2MG/ML-1ML VIAL IV PRN (20:15)
[2020-02-20] MEDS ORDERED: MORPHINE SULF INJ 2 MG/ML SYRINGE 1ML IV PRN (20:45)
[2020-02-20] MEDS ORDERED: NITROGLYCERIN 0.4 MG SL TAB SL PRN (20:45)
--- NOTE | 2020-02-20 22:00 | NUR ---
Telemetry admit from ER KRISTA STERLING admitted to Telemetry unit after SBAR received. Patient oriented to Ashley Schmidt, primary RN, unit, room, bed, and unit policies regarding patient care and visiting hours. Patient now on continuous telemetry monitoring, tele box # [76] and telemetry reading on arrival to unit is [SR 69]. Patient weighed by bedscale and encouraged to call if SHE need something. SEIZURE PRECAUTION IN PLACE. All questions and concerns addressed, patient verbalized understanding. BED IN LOWEST LOCKED POSITION WITH PADDED SIDE RAILS UP X 2. CALL DESAI WITHIN REACH. ALARM ON. CONTINUE TO MONITOR FOR CHANGES Q1H AND PRN Note: []
[2020-02-20 22:17] VITALS: BP 94/58
--- NOTE | 2020-02-21 03:53 | NUR ---
ATIENT SLEEPING. NO S/S OF DISTRESS NOTED. CONTINUE CARE.
[2020-02-21 05:00] VITALS: BP 94/57
[2020-02-21 07:20] LABS: BUN/Creatinine Ratio 13.2; Calcium 8.8 mg/dL (8.5-10.1); Magnesium 1.9 mg/dL (1.6-2.6); Potassium 4.1 mmol/L (3.5-5.1)
[2020-02-21 08:34] VITALS: BP 105/69
[2020-02-21] MEDS ORDERED: PARoxetine 20 MG TAB PO SCH (10:00)
--- NOTE | 2020-02-21 11:37 | NUR ---
PT AWAKE, ALERT, ORIENTED. DR LAURENCE NGUYEN AT BEDSIDE. PT AGREED TO TELE PSYCH CONSULT. ORDER PLACED, COMPUTER IN ROOM, TESTING DONE. AWAITING CALL AT THIS TIME.
[2020-02-21 13:07] VITALS: BP 108/67
--- NOTE | 2020-02-21 15:48 | NUR ---
RECEIVED TELE PSYCH REPORT VIA FAX. FAXED TO DR. YEYO NGUYEN.
[2020-02-21] MEDS ORDERED: DULO30CA PO (15:50)
[2020-02-21 16:55] VITALS: BP 104/61
[2020-02-21 17:23] VITALS: BP 104/61
--- NOTE | 2020-02-21 18:10 | NUR ---
DR GUY IN TO SEE PT. CLEARED FOR DISCHARGE. DISCHARGE INSTRUCTIONS GIVEN TO PT , VERBALIZED UNDERSTANDING, ALL APPROPRIATE PAPERWORK SIGNED. IV AND TELE BOX REMOVED.
--- NOTE | 2020-02-21 18:12 | NUR ---
Assessment Patient is a 29-year-old female who is alert and oriented. Prior to admission patient lived home with family and functioned independently. Patient informed me she can care for her own ADLs. Patient informed me she does not have DME now. Per patient she will return to her prior living arrangements post discharge and family will transport home. Advised patient there is a social service consult for home health safety evaluation. Information patient clinical information will be faxed to [facility]. Informed Patient she has a right to participate in all discharge planning. Patient verbalized understanding and agreed to discharge plan. Faxed clinical information to [facility] and [facility]. Per Anabell with [facility] patient has been accepted and service to start within 24-48 hrs upon d/c day. Obtain auth from [facility] [id number]. Addendum: 02/21/20 at 1814 by NERI BOWSER Amended: Links added.
--- NOTE | 2020-02-21 18:31 | NUR ---
PT DISCHARGED HOME WITH FAMILY.
== END 2020-02-21 18:30 | disposition home health service (06) | DRG 53 ==
LOC: EDBD 13:32 → ER 13:32 → TELE 13:33 → TELE-WESTW 22:00
PROVIDERS: ADMIT Internal Medicine; ATTEND Internal Medicine
DX: G40.209 Localization-related (focal) (partial) symptomatic epilepsy and epileptic syndromes with complex partial seizures, not intractable, without status epilepticus (principal); M32.9 Systemic lupus erythematosus, unspecified; E87.6 Hypokalemia; F41.9 Anxiety disorder, unspecified; G89.29 Other chronic pain; M54.5 Low back pain; G43.909 Migraine, unspecified, not intractable, without status migrainosus; F12.90 Cannabis use, unspecified, uncomplicated; Z79.899 Other long term (current) drug therapy; Z80.3 Family history of malignant neoplasm of breast; Z81.8 Family history of other mental and behavioral disorders; Z87.11 Personal history of peptic ulcer disease; Z90.13 Acquired absence of bilateral breasts and nipples; Z90.710 Acquired absence of both cervix and uterus
CPT/HCPCS: 36415; 70450; 80048; 80053; 80307; 81001; 83735; 85025; 93005; 96365; 96366; 96367; 96375; G0378; J3480; J7060

== ENCOUNTER 2020-08-15 11:33 | Emergency (ER) | payer MEDICAID ==
[~2020-08-15] VITALS: Ht 172.7 cm; Wt 69.9 kg
[~2020-08-15 11:33] MED LIST changes: +DULO30CA PO
[2020-08-15 12:01] VITALS: BP 108/72
== END 2020-08-15 13:39 | disposition home or self-care (01) ==
LOC: ER 11:33
DX: J34.89 Other specified disorders of nose and nasal sinuses (principal); R23.8 Other skin changes; F12.10 Cannabis abuse, uncomplicated; Z90.710 Acquired absence of both cervix and uterus

== ENCOUNTER 2020-10-14 17:08 | Emergency (ER) | payer MEDICAID ==
[~2020-10-14] VITALS: Ht 172.7 cm; Wt 71.2 kg
[2020-10-14] MEDS ORDERED: LORazepam 2MG/ML-1ML VIAL IV ONE ×2 (17:15→23:45)
[2020-10-14 18:19] LABS: Basophils # (auto) 0 10 ^3/uL (0-0.2); Basophils % (auto) 0.5 % (0.0-2.0); Eosinophils # (auto) 0.1 10 ^3/uL (0-0.8); Eosinophils % (auto) 0.7 % (0.0-7.0); Hematocrit 41.7 % (36.0-46.0); Hemoglobin 14.4 g/dL (12.2-16.2); Lymphocytes # (auto) 1.3 10 ^3/uL (0.4-5.4); Lymphocytes % (auto) 15.5 % (10.0-50.0); Mean Corpuscular Hemoglobin 32.8 pg (28.0-32.0); Mean Corpuscular Hgb Conc. 34.5 g/dL (32.0-36.0); Mean Corpuscular Volume 95.1 fL (80.0-100.0); Monocytes # (auto) 0.4 10 ^3/uL (0-1.3); Monocytes % (auto) 4.9 % (0.0-12.0); Neutrophils # (auto) 6.4 10 ^3/uL (1.6-8.6); Neutrophils % (auto) 78.4 % (37.0-80.0); Platelet Count (auto) 177 10^3/uL (140-450); Red Blood Cells 4.39 10^6/uL (4.0-5.20); Red Cell Distribution Width 13.9 % (11.8-14.3); White Blood Cell 8.2 10^3/uL (4.4-10.8)
[2020-10-14 18:28] LABS: Calcium 10.1 mg/dL (8.5-10.1); Potassium 3.2 mmol/L (3.5-5.1)
[2020-10-14 18:33] LABS: Albumin 4.5 g/dL (3.4-5.0); BUN/Creatinine Ratio 16.7; Bilirubin, Total 0.3 mg/dL (0.2-1.0)
[2020-10-14] MEDS ORDERED: METOCLOPRAMIDE HCL 5MG/ml INJ 2ml VIAL IV ONE (19:30)
[2020-10-14] MEDS ORDERED: FAMOTIDINE (10MG/ML) 2ML VL IV ONE (23:15)
[2020-10-14] MEDS ORDERED: LIDOCAINE VISCOUS 2% 15ML UD PO ONE (23:15)
[2020-10-14] MEDS ORDERED: SODIUM CHLORIDE 0.9% 1,000 ML IV ONE (23:45)
[2020-10-15] VITALS: BP 99/64
== END 2020-10-15 01:26 | disposition home or self-care (01) ==
LOC: ER 17:08
DX: R51.9 Headache, unspecified (principal); R11.2 Nausea with vomiting, unspecified; F43.10 Post-traumatic stress disorder, unspecified; F41.9 Anxiety disorder, unspecified
CPT/HCPCS: 36415; 71045; 80053; 83605; 84146; 85025; 93005; 96361; 96374; 96375; 96376; 99285; J2060; J2765; J3490; J7030

== ENCOUNTER 2020-11-25 08:21 | Emergency (ER) | payer MEDICAID ==
[~2020-11-25] VITALS: Ht 172.7 cm; Wt 73.5 kg
[2020-11-25 09:13] VITALS: BP 116/82
[2020-11-25] MEDS ORDERED: LORazepam 0.5 MG TAB PO ONE (09:15)
== END 2020-11-25 09:53 | disposition home or self-care (01) ==
LOC: ER 08:21
DX: F41.9 Anxiety disorder, unspecified (principal); A05.9 Bacterial foodborne intoxication, unspecified; Z90.49 Acquired absence of other specified parts of digestive tract; Z90.710 Acquired absence of both cervix and uterus; Z79.899 Other long term (current) drug therapy
CPT/HCPCS: 93005

== ENCOUNTER 2020-11-30 19:46 | Emergency (ER) | payer MEDICAID ==
[~2020-11-30] VITALS: Ht 172.7 cm; Wt 72.6 kg
[2020-11-30] MEDS ORDERED: LORazepam 2MG/ML-1ML VIAL IV ONE (20:15)
[2020-11-30] MEDS ORDERED: SODIUM CHLORIDE 0.9% 1,000 ML IV ONE (20:15)
[2020-11-30 20:18] VITALS: BP 109/77
[2020-11-30 20:45] LABS: Albumin 4.2 g/dL (3.4-5.0); BUN/Creatinine Ratio 18.5; Calcium 8.8 mg/dL (8.5-10.1); Potassium 3.6 mmol/L (3.5-5.1)
[2020-11-30 20:48] LABS: Bilirubin, Total 0.4 mg/dL (0.2-1.0); Total Protein 7.9 g/dL (6.4-8.2)
[2020-11-30 21:11] LABS: Basophils # (auto) 0 10 ^3/uL (0-0.2); Basophils % (auto) 0.4 % (0.0-2.0); Eosinophils # (auto) 0 10 ^3/uL (0-0.8); Eosinophils % (auto) 0.4 % (0.0-7.0); Hematocrit 39.3 % (36.0-46.0); Hemoglobin 13.5 g/dL (12.2-16.2); Lymphocytes # (auto) 1.2 10 ^3/uL (0.4-5.4); Lymphocytes % (auto) 18.2 % (10.0-50.0); Mean Corpuscular Hemoglobin 32.6 pg (28.0-32.0); Mean Corpuscular Hgb Conc. 34.4 g/dL (32.0-36.0); Mean Corpuscular Volume 94.8 fL (80.0-100.0); Monocytes # (auto) 0.4 10 ^3/uL (0-1.3); Monocytes % (auto) 6.3 % (0.0-12.0); Neutrophils % (auto) 74.7 % (37.0-80.0); Nucleated Red Blood Cells % 0.1 %; Platelet Count (auto) 154 10^3/uL (140-450); Red Blood Cells 4.14 10^6/uL (4.0-5.20); Red Cell Distribution Width 13.4 % (11.8-14.3); White Blood Cell 6.6 10^3/uL (4.4-10.8)
[2020-12-01 01:11] LABS: Alcohol, Urine < 3.0 mg/dL (0-10); Amphetamine Screen, Urine NEGATIVE (NEGATIVE); Barbiturate Scree,Urine NEGATIVE (NEGATIVE); Benzodiazephine Screen, Urine NEGATIVE (NEGATIVE); Cannabinoid Screen, Urine POSITIVE (NEGATIVE); Cocaine Screen, Urine NEGATIVE (NEGATIVE); Opiate Scree,Urine NEGATIVE (NEGATIVE); Phencyclidine Screen, Urine NEGATIVE (NEGATIVE)
[2020-12-01 01:37] LABS: Urine Bacteria FEW /hpf (None Seen); Urine Blood Negative /uL (Negative); Urine Mucus FEW (None Seen); Urine Specific Gravity 1.017 (1.001-1.035); Urine WBC 6 /hpf (0 - 5)
== END 2020-11-30 22:47 | disposition home or self-care (01) ==
LOC: EDBD 19:46 → ER 19:57
DX: F41.9 Anxiety disorder, unspecified (principal); Z90.710 Acquired absence of both cervix and uterus
CPT/HCPCS: 36415; 80053; 80307; 81001; 85025; 96361; 96374; 99283; J2060; J7030

== ENCOUNTER 2020-12-16 07:57 | Emergency (ER) | payer MEDICAID ==
[~2020-12-16] VITALS: Ht 172.7 cm; Wt 70.8 kg
[2020-12-16] MEDS ORDERED: LORazepam 2MG/ML-1ML VIAL ONE (07:59)
[2020-12-16] MEDS ORDERED: LORazepam 2MG/ML-1ML VIAL IV ONE ×2 (08:15)
[2020-12-16 09:44] LABS: Basophils # (auto) 0 10 ^3/uL (0-0.2); Basophils % (auto) 0.8 % (0.0-2.0); Eosinophils # (auto) 0.1 10 ^3/uL (0-0.8); Eosinophils % (auto) 0.9 % (0.0-7.0); Hematocrit 42.4 % (36.0-46.0); Hemoglobin 14.9 g/dL (12.2-16.2); Mean Corpuscular Hemoglobin 33.5 pg (28.0-32.0); Mean Corpuscular Hgb Conc. 35.1 g/dL (32.0-36.0); Mean Corpuscular Volume 95.5 fL (80.0-100.0); Monocytes # (auto) 0.4 10 ^3/uL (0-1.3); Monocytes % (auto) 7.2 % (0.0-12.0); Neutrophils # (auto) 4.2 10 ^3/uL (1.6-8.6); Neutrophils % (auto) 73.1 % (37.0-80.0); Platelet Count (auto) 155 10^3/uL (140-450); Red Blood Cells 4.44 10^6/uL (4.0-5.20); Red Cell Distribution Width 13.9 % (11.8-14.3); White Blood Cell 5.7 10^3/uL (4.4-10.8)
[2020-12-16] MEDS ORDERED: ONDANSETRON HCL 4 MG/2 ML VIAL IV ONE (09:45)
[2020-12-16 10:16] LABS: Urine Amorphous Crystal FEW /hpf (None Seen); Urine Bacteria FEW /hpf (None Seen); Urine Blood Negative /uL (Negative); Urine Mucus FEW (None Seen); Urine Specific Gravity 1.008 (1.001-1.035); Urine WBC 2 /hpf (0 - 5)
[2020-12-16 10:21] LABS: Albumin 4.3 g/dL (3.4-5.0); Calcium 9.2 mg/dL (8.5-10.1); Potassium 3.3 mmol/L (3.5-5.1)
[2020-12-16 10:25] LABS: BUN/Creatinine Ratio 15.6; Bilirubin, Total 0.3 mg/dL (0.2-1.0); Total Protein 7.8 g/dL (6.4-8.2)
[2020-12-16 10:32] LABS: Alcohol, Urine < 3.0 mg/dL (0-10); Amphetamine Screen, Urine NEGATIVE (NEGATIVE); Barbiturate Scree,Urine NEGATIVE (NEGATIVE); Benzodiazephine Screen, Urine NEGATIVE (NEGATIVE); Cannabinoid Screen, Urine POSITIVE (NEGATIVE); Cocaine Screen, Urine NEGATIVE (NEGATIVE); Opiate Scree,Urine NEGATIVE (NEGATIVE); Phencyclidine Screen, Urine NEGATIVE (NEGATIVE)
[2020-12-16] MEDS ORDERED: POTASSIUM EFFERVESENT TAB 25 MEQ PO ONE (13:45)
[2020-12-16 14:04] VITALS: BP 105/62
== END 2020-12-16 14:17 | disposition home or self-care (01) ==
LOC: ER 07:57
DX: G40.909 Epilepsy, unspecified, not intractable, without status epilepticus (principal); E87.6 Hypokalemia; Z32.02 Encounter for pregnancy test, result negative; Z90.710 Acquired absence of both cervix and uterus
CPT/HCPCS: 36415; 71045; 80053; 80307; 81001; 81025; 85025; 85049; 96374; 96375; 99285; J2060; J2405

== ENCOUNTER 2020-12-23 09:51 | Emergency (ER) | payer MEDICAID ==
[~2020-12-23] VITALS: Ht 182.9 cm; Wt 68.0 kg
[2020-12-23 09:54] VITALS: BP 132/82
[2020-12-23 10:33] LABS: Basophils # (auto) 0 10 ^3/uL (0-0.2); Basophils % (auto) 0.5 % (0.0-2.0); Eosinophils # (auto) 0.1 10 ^3/uL (0-0.8); Eosinophils % (auto) 1.9 % (0.0-7.0); Hematocrit 43.1 % (36.0-46.0); Hemoglobin 13.9 g/dL (12.2-16.2); Lymphocytes # (auto) 1.1 10 ^3/uL (0.4-5.4); Lymphocytes % (auto) 17.8 % (10.0-50.0); Mean Corpuscular Hemoglobin 30.9 pg (28.0-32.0); Mean Corpuscular Hgb Conc. 32.3 g/dL (32.0-36.0); Mean Corpuscular Volume 95.8 fL (80.0-100.0); Monocytes # (auto) 0.4 10 ^3/uL (0-1.3); Neutrophils # (auto) 4.6 10 ^3/uL (1.6-8.6); Neutrophils % (auto) 73.8 % (37.0-80.0); Red Cell Distribution Width 13.8 % (11.8-14.3); White Blood Cell 6.2 10^3/uL (4.4-10.8)
[2020-12-23 10:54] LABS: Albumin 4.2 g/dL (3.4-5.0); Calcium 8.9 mg/dL (8.5-10.1)
[2020-12-23 10:57] LABS: BUN/Creatinine Ratio 14.5; Bilirubin, Total 0.2 mg/dL (0.2-1.0); Total Protein 7.5 g/dL (6.4-8.2)
== END 2020-12-23 14:23 | disposition left against medical advice (07) ==
LOC: ER 09:51
DX: R56.9 Unspecified convulsions (principal); Z53.21 Procedure and treatment not carried out due to patient leaving prior to being seen by health care provider
CPT/HCPCS: 36415; 80053; 85025